=== PATIENT | female | born 1950 | race Caucasian/White ===

== ENCOUNTER 2020-08-31 05:25 | Day surgery (SDC) | payer MEDICARE ==
[~2020-08-31] VITALS: Ht 166 cm; Wt 83.0 kg
[~2020-08-31 05:25] MED LIST: ALEVE220 M1 PO; ALLEGRA ALLERG180 MG PO; ASPIRIN CHEWABL81 MG PO; BENADRYL25 MG PO; CENTRUM ADULTS1 EACH PO; LISINOPRIL-HCT1 EACH PO; METAMUCIL0.52 GM PO; SIMVASTATIN20 MG PO; VITAMIN D3 COM1 EACH PO
[2020-08-31 06:35] LABS: HCT 42.5 % (37.0-47.0); HGB 13.7 g/dl (12.5-16.0); MCH 27.9 pg (25.0-31.0); MCHC 32.2 g/dL (32.0-36.0); MCV 86.6 fL (78.0-100.0); MPV 9.8 fL (6.0-9.5); RBC 4.91 M/uL (4.20-5.40); RDW 14.1 % (11.5-14.0)
[2020-08-31 06:48] LABS: INR 1.04 (0.9-1.2); PROTHROMBIN TIME 12.9 SECONDS (11.4-13.6); PTT 45.8 SECONDS (22.2-34.7)
[2020-08-31 06:52] LABS: ALBUMIN 3.8 g/dL (3.4-5.0); BILIRUBIN - TOTAL 0.5 mg/dL (0.2-1.0); BUN/CREAT RATIO (CALC) 27.7 RATIO; CREATININE 0.65 mg/dL (0.51-0.95); GLOBULIN (CALCULATION) 3.6 g/dL; POTASSIUM 3.9 mmol/L (3.5-5.1); TOTAL PROTEIN 7.4 g/dL (6.4-8.2)
[2020-08-31] MEDS ORDERED: PERCOCET 5-3251 EACH PO (09:40)
[2020-09-01 05:15] LABS: BASOPHIL 0.7 % (0-2); EOSINOPHIL 13.5 % (0-7); HCT 31.5 % (37.0-47.0); HGB 9.8 g/dl (12.5-16.0); LYMPHOCYTE 15.3 % (15-48); MCH 30.1 pg (25.0-31.0); MCHC 31.1 g/dL (32.0-36.0); MCV 96.6 fL (78.0-100.0); MONOCYTE 9.5 % (0-12); MPV 8.3 fL (6.0-9.5); NEUTROPHIL 60.7 % (41-80); NRBC 0; PLT 408 K/uL (150-400); RBC 3.26 M/uL (4.20-5.40); RDW 13.7 % (11.5-14.0); WBC 8.7 K/uL (4.0-10.5)
[2020-09-01 05:53] LABS: BUN/CREAT RATIO (CALC) 26.2 RATIO; CREATININE 0.65 mg/dL (0.51-0.95); POTASSIUM 4.7 mmol/L (3.5-5.1)
[2020-09-01] MEDS ORDERED: XARELTO10 MG PO (08:58)
[2020-09-01] MEDS ORDERED: FEOSOL325 MG PO (08:58)
--- NOTE | 2020-09-01 09:08 | NUR ---
PT TO D/C HOME. 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 TO DELIVER A ROLLING WALKER AND 08/24.
--- NOTE | 2020-09-01 09:41 | NUR ---
TC TO [facility] IS $131.81 PT. IS AGREEABLE TO THE [facility] TO PT [facility] - [phone] FIRST APPT. IS 09/04/2020 @ 2:00 P.M. CENTRAL TIME. [facility] WILL CALL PT. IF THERE IS A CANCELLATION. FAXED CLINICAL INFORMATION TO PT PROS [phone].
--- NOTE | 2020-09-01 10:21 | NUR ---
RAMU BROWNLEE, JUST ADVISED THAT PT. APPT HAS BEEN CHANGED TO 9:00 A.M MONDAY, 09/02.
== END 2020-09-01 12:10 | disposition home or self-care (01) ==
LOC: FAS 05:25 → FMS 05:25 → FAS 08:30 → FMS 09:07 → FAS 09-01 12:10
PROVIDERS: Legal Medicine; Nurse Practitioner Adult Health
DX: M17.11 Unilateral primary osteoarthritis, right knee (principal); M21.161 Varus deformity, not elsewhere classified, right knee; I10 Essential (primary) hypertension; E78.5 Hyperlipidemia, unspecified; R79.1 Abnormal coagulation profile; Z79.899 Other long term (current) drug therapy; Z88.2 Allergy status to sulfonamides
CPT/HCPCS: 36415; 73560; 80048; 80053; 85025; 85610; 85730; 86850; 86900; 86901; 94010; 94762; 97110; 97116; 97162; 97165; 97530-GP; 97535; C1713; C1776; J0171; J0697; J1100; J1170; J1885; J2250; J2270; J2405; J2704; J2795; J3010; J7120